=== PATIENT | male | born 1990 | race Caucasian/White ===

== ENCOUNTER 2020-12-01 00:48 | Emergency (ER) | payer BC ==
[2020-12-01] MEDS ORDERED: IBUPROFEN800 MG PO (03:50)
== END 2020-12-01 03:55 | disposition home or self-care (01) ==
LOC: ER1 00:48
DX: S82.402A Unspecified fracture of shaft of left fibula, initial encounter for closed fracture (principal); F17.200 Nicotine dependence, unspecified, uncomplicated; W10.9XXA Fall (on) (from) unspecified stairs and steps, initial encounter; Y92.009 Unspecified place in unspecified non-institutional (private) residence as the place of occurrence of the external cause
CPT/HCPCS: 29515; 73590; 99283